=== PATIENT | female | born 1950 | race Caucasian/White ===

== ENCOUNTER → 2019-03-19 | Outpatient (CLI) | payer MEDICARE | LOC: MC.RAD 08:10 | DX: Z12.31 Encounter for screening mammogram for malignant neoplasm of breast (principal) ==

== ENCOUNTER 2020-08-22 05:22 | Inpatient (IN) | payer MEDICARE ==
[~2020-08-22] VITALS: Ht 167.6 cm; Wt 228.0 kg
[2020-08-22] VITALS (14 sets, daily range): BP systolic 125–154; BP diastolic 46–116; PULSE 66–85; TEMP 97.4–98
[2020-08-22] MEDS ORDERED: CALTRATE-600 W600 MG PO (06:18)
[2020-08-22] MEDS ORDERED: MASON NATURAL2000 IU PO (06:19)
--- NOTE | 2020-08-22 09:30 | NUR ---
Patient up from OR. Alert and oriented x 3. Assessment complete. Denies pain at this time. Post op fluids infusing, Post op VSS. Denies further needs at this time. O2 at 3L via NC. Denies further needs at this time. Spouse at bedside.
[2020-08-22] MEDS ORDERED: PERCOCET 325 MG1 TA2 PO (14:19)
--- NOTE | 2020-08-22 16:33 | NUR ---
Patient has been doing well today, complaining of hemorrhoid pain, relieved with ibuprofen. Tolerating diet; IV to INT. Patient has been up ambulating in room independently. Has minimal bleeding. Denies further needs at this time. Patient transfered to OB room 220, notified Dr. Parrish of room change.
[2020-08-23 02:40] VITALS: BP 124/61; PULSE 76; TEMP 98
[2020-08-23 07:00] VITALS: BP 148/88; PULSE 90; TEMP 98.3
[2020-08-23] MEDS ORDERED: MOTRIN 600600 MG/TAB PO (08:19)
== END 2020-08-23 14:00 | disposition home or self-care (01) | DRG 748 ==
LOC: SDCO 05:22 → JCC 08:29 → INPTSU 08:29 → JCC 10:06 → OB 16:36
PROVIDERS: ADMIT Obstetrics & Gynecology
PROC: 0ULG7ZZ Occlusion of Vagina, Via Natural or Artificial Opening (ICD-10-PCS; principal; 2020-08-22 07:30)
DX: N81.3 Complete uterovaginal prolapse (principal)
CPT/HCPCS: J2405; J2704; J3010; J7120

== ENCOUNTER → 2022-02-04 | Outpatient (CLI) | payer MEDICARE ==
[~2022-02-04] MED LIST: CALTRATE-600 W600 MG PO; MASON NATURAL2000 IU PO; MOTRIN 600600 MG/TAB PO; PERCOCET 325 MG1 TA2 PO
== END ==
LOC: MC.RAD 09:28
DX: Z12.31 Encounter for screening mammogram for malignant neoplasm of breast (principal)

== ENCOUNTER 2022-04-11 10:43 | Emergency (ER) | payer MEDICARE ==
[~2022-04-11] VITALS: Ht 162.6 cm; Wt 102.3 kg
[2022-04-11 11:24] LABS: BASO % 0.3 % (0.0-2.0); EOS # 0.1 K/mm3 (0.0-0.7); EOS % 0.6 % (0.0-4.0); GRAN # 7.4 K/mm3 (1.4-6.5); HEMATOCRIT 40.4 % (37.0-47.0); HEMOGLOBIN 13.3 g/dl (12.5-16.0); LYMPH # 1.7 K/mm3 (1.2-3.4); LYMPH % 17.1 % (20.0-51.0); MEAN CELL VOLUME 86 fl (80.0-100.0); MEAN CORPUSCULAR HEMOGLOBIN 28 pg (27-31); MEAN CORPUSCULAR HGB CONC 33 g/dl (33.0-37.0); MEAN PLATELET VOLUME 10.6 fl (7.4-10.4); MONO # 0.8 K/mm3 (0.1-0.6); MONO % 7.6 % (1.7-9.3); PLATELET COUNT 249 K/mm3 (130-400); REDCELL DISTRIBUTION WIDTH-CV 13.8 % (11.5-14.5)
[2022-04-11 11:35] LABS: ALBUMIN 3.7 gm/dL (3.4-4.8); BILIRUBIN,TOTAL 0.6 mg/dL (0.2-1.2); CALCIUM 9.1 mg/dL (8.4-10.2); CREATININE, serum 0.78 mg/dL (0.57-1.11)
[2022-04-11 11:41] LABS: TROPONIN-I 0.013 ng/mL (0.00-0.033)
[2022-04-11 11:55] LABS: TOTAL PROTEIN 6.9 gm/dL (6.2-8.1)
[2022-04-11 12:43] VITALS: BP 134/72; PULSE 83
== END 2022-04-11 13:28 | disposition home or self-care (01) ==
LOC: COL.ER 10:43
PROVIDERS: Personal Emergency Response Attendant
DX: R55 Syncope and collapse (principal)
CPT/HCPCS: J7030